=== PATIENT | male | born 1990 | race Caucasian/White ===

== ENCOUNTER 2019-03-25 21:35 | Emergency (ER) | payer SELFPAY ==
[2019-03-25] MEDS ORDERED: hydrOXYzine 25 MG TAB ONE (21:49)
== END 2019-03-25 23:14 | disposition home or self-care (01) ==
LOC: BURERS 21:35
DX: F41.0 Panic disorder [episodic paroxysmal anxiety] (principal); Z79.899 Other long term (current) drug therapy
CPT/HCPCS: 99283